=== PATIENT | male | born 1950 ===

== ENCOUNTER 2019-05-22 08:11 | Outpatient (CLI) | payer OTHER ==
[2019-05-22] MEDS ORDERED: CENTRUM MULTIG80 MCG PO (10:07)
[2019-05-22] MEDS ORDERED: OMEGA-31000 MG PO (10:07)
== END 2019-05-22 08:20 | disposition home or self-care (01) ==
LOC: LAB 08:11
DX: E78.00 Pure hypercholesterolemia, unspecified (principal); R74.0 Nonspecific elevation of levels of transaminase and lactic acid dehydrogenase [LDH]

== ENCOUNTER 2019-05-27 05:50 | Day surgery (SDC) | payer OTHER ==
[~2019-05-27 05:50] MED LIST: CENTRUM MULTIG80 MCG PO; OMEGA-31000 MG PO
== END 2019-05-27 15:45 | disposition home or self-care (01) ==
LOC: CIR.AMB 05:50
DX: K40.90 Unilateral inguinal hernia, without obstruction or gangrene, not specified as recurrent (principal)